=== PATIENT | female | born 1965 | race Hispanic/Latino ===

== ENCOUNTER 2021-11-15 02:39 | Emergency (ER) | payer OTHER ==
[2021-11-15 03:23] LABS: Urine Blood 3+ (Negative); Urine Glucose Negative (Negative); Urine Protein Trace (Negative); Urine Specific Gravity >=1.030 (1.005-1.030)
[2021-11-15] MEDS ORDERED: FENTANYL CITR 100 MCG/2 ML ONE (03:28)
[2021-11-15] MEDS ORDERED: ONDANSETRON 4 MG/2 ML VIAL ONE (03:29)
[2021-11-15] MEDS ORDERED: NA CHLORIDE 0.9% 50 ML ONE (03:29)
[2021-11-15] MEDS ORDERED: CEFTRIAXONE 1000 MG/VIAL ONE (03:29)
[2021-11-15] MEDS ORDERED: KETOROLAC 30 MG/ML INJ ONE (03:29)
--- NOTE | 2021-11-15 03:38 | EDPHYS ---
Physician Documentation [facility] Name: Chantell Renae Age: 56 yrs Sex: Female : 1965 Arrival Date: 11/15/2021 Time: 02:42 Bed 7 Private MD: Emmanuelle Martinez K ED Physician Subhash Medrano HPI: 11/15 03:30 This 56 yrs old Female presents to ER via Ambulatory with complaints of Hip kulwant Pain, Flank Pain. 03:30 The patient or guardian reports pain. that occurred at home, sustained from unknown kulwant reason. The complaints affect the back and abdomen. 03:31 The patient presents with abdominal pain in the left lower quadrant. Onset: The kulwant symptoms/episode began/occurred just prior to arrival. The patient complains of pain in the left low back and left mid back. The pain does not radiate. Onset: The symptoms/episode began/occurred last night. Modifying factors: The symptoms are alleviated by nothing. the symptoms are aggravated by nothing. Associated signs and symptoms: Pertinent positives: nausea. The symptoms radiate to the left flank. Associated signs and symptoms: Pertinent positives: nausea. The symptoms are described as crampy, sharp. Modifying factors: The symptoms are alleviated by nothing, the symptoms are aggravated by nothing. Historical: - Allergies: 02:49 Morphine; lg3 - Home Meds: 02:49 losartan-hydrochlorothiazide 50-12.5 mg oral tab 1 tab once daily [Active]; lg3 - PMHx: 02:50 Hypertensive disorder; lg3 - PSHx: 02:50 section; laminectomy; lg3 - Immunization history:: Adult Immunizations up to date, Client reports receiving the Alberto \T\ Alberto single-dose vaccine. Note moderna booster . - Social history:: Smoking status: Patient denies any tobacco usage or history of. - Family history:: not pertinent. ROS: 03:31 Constitutional: Negative for fever, chills, and weight loss, Eyes: Negative for injury, kulwant pain, redness, and discharge, ENT: Negative for injury, pain, and discharge, Neck: Negative for injury, pain, and swelling, Cardiovascular: Negative for chest pain, palpitations, and edema, Respiratory: Negative for shortness of breath, cough, wheezing, and pleuritic chest pain, Back: Negative for injury and pain, : Negative for injury, bleeding, discharge, and swelling, MS/Extremity: Negative for injury and deformity, Skin: Negative for injury, rash, and discoloration, Neuro: Negative for headache, weakness, numbness, tingling, and seizure, Psych: Negative for depression, anxiety, suicide ideation, homicidal ideation, and hallucinations, Allergy/Immunology: Negative for hives, rash, and allergies, Endocrine: Negative for neck swelling, polydipsia, polyuria, polyphagia, and marked weight changes, Hematologic/Lymphatic: Negative for swollen nodes, abnormal bleeding, and unusual bruising. 03:31 Abdomen/GI: Positive for abdominal pain, nausea, of the posterior aspect of left lateral abdomen, anterior aspect of left lateral abdomen and left lower quadrant. Exam: 03:31 Constitutional: This is a well developed, well nourished patient who is awake, alert, kulwant and in no acute distress. Head/Face: Normocephalic, atraumatic. Eyes: Pupils equal round and reactive to light, extra-ocular motions intact. Lids and lashes normal. Conjunctiva and sclera are non-icteric and not injected. Cornea within normal limits. Periorbital areas with no swelling, redness, or edema. ENT: Nares patent. No nasal discharge, no septal abnormalities noted. Tympanic membranes are normal and external auditory canals are clear. Oropharynx with no redness, swelling, or masses, exudates, or evidence of obstruction, uvula midline. Mucous membranes moist. Neck: Trachea midline, no thyromegaly or masses palpated, and no cervical lymphadenopathy. Supple, full range of motion without nuchal rigidity, or vertebral point tenderness. No Meningismus. Chest/axilla: Normal chest wall appearance and motion. Nontender with no deformity. No lesions are appreciated. Cardiovascular: Regular rate and rhythm with a normal S1 and S2. No gallops, murmurs, or rubs. Normal PMI, no JVD. No pulse deficits. Respiratory: Lungs have equal breath sounds bilaterally, clear to auscultation and percussion. No rales, rhonchi or wheezes noted. No increased work of breathing, no retractions or nasal flaring. Female : Normal external genitalia. Skin: Warm, dry with normal turgor. Normal color with no rashes, no lesions, and no evidence of cellulitis. MS/ Extremity: Pulses equal, no cyanosis. Neurovascular intact. Full, normal range of motion. Neuro: Awake and alert, GCS 15, oriented to person, place, time, and situation. Cranial nerves II-XII grossly intact. Motor strength 5/5 in all extremities. Sensory grossly intact. Cerebellar exam normal. Normal gait. Psych: Awake, alert, with orientation to person, place and time. Behavior, mood, and affect are within normal limits. 03:31 Abdomen/GI: Inspection: abdomen appears normal, Bowel sounds: normal, Palpation: mild abdominal tenderness, in the posterior aspect of left lateral abdomen and left lower quadrant. 03:31 Back: pain, that is mild, of the left mid back, ROM is normal, normal spinal alignment noted, CVA tenderness, is absent, vertebral tenderness, is not appreciated, muscle spasm, is not present. Vital Signs: 02:46 BP 162 / 87; Pulse 87; Resp 19 S; Temp 98.4(O); Pulse Ox 100% on R/A; Weight 57.61 kg lg3 (R); Height 5 ft. (152.40 cm) (R); Pain 6/10; 05:02 BP 142 / 75; Pulse 83; Resp 18; Pulse Ox 100% ; sm5 02:46 Body Mass Index 24.80 (57.61 kg, 152.40 cm) lg3 MDM: 02:57 Patient medically screened. [facility] 03:35 Differential diagnosis: nephrolithiasis, pyelonephritis, UTI, diverticulitis, kulwant pancreatitis, diverticulitis, Irritable bowel syndrome, non-specific abd pain, Pyelonephritis, Ureterolithiasis, urinary tract infection. Data reviewed: vital signs, nurses notes, lab test result(s), radiologic studies, CT scan. Data interpreted: monitoring tech: not applicable for this patient encounter. rate is 87 beats/min, rhythm is regular, Pulse oximetry: on room air is 100 %. Counseling: I had a detailed discussion with the patient and/or guardian regarding: the historical points, exam findings, and any diagnostic results supporting the discharge/admit diagnosis, lab results, radiology results, the need for outpatient follow up, for definitive care, a family practitioner. 11/15 03:13 Order name: Basic Metabolic Panel [facility] 11/15 03:13 Order name: CBC with Diff; Complete Time: 04:49 [facility] 11/15 03:13 Order name: Hepatic Function; Complete Time: 04:49 kulwant 11/15 03:13 Order name: Lipase; Complete Time: 04:49 [facility] 11/15 03:13 Order name: Urine Culture [facility] 11/15 03:14 Order name: Basic Metabolic Panel; Complete Time: 04:49 [facility] 11/15 03:13 Order name: IV Saline Lock; Complete Time: 03:15 kulwant 11/15 03:13 Order name: CT Stone Protocol [facility] 11/15 03:23 Order name: Urine Dipstick-Ancillary; Complete Time: 04:49 [facility] 11/15 03:13 Order name: Labs collected and sent; Complete Time: 03:44 kulwant 11/15 03:13 Order name: Urine Dipstick-Ancillary (obtain specimen); Complete Time: 03:44 [facility] Administered Medications: 03:41 Drug: Ketorolac 30 mg Route: IVP; Site: right hand; sm5 03:41 Drug: Zofran (Ondansetron) 4 mg Route: IVP; Site: right hand; sm5 03:42 Drug: fentaNYL (PF) 25 mcg Route: IVP; Site: right hand; sm5 03:43 Drug: Rocephin (cefTRIAXone) 1 grams Route: IV; Rate: per protocol; Site: right hand; sm5 05:02 Drug: Flomax (tamsulosin) 0.4 mg Route: PO; sm5 Disposition Summary: 11/15/21 04:49 Discharge Ordered Location: Home(11/15/21 04:49) kulwant Problem: new(11/15/21 04:49) kulwant Symptoms: have improved(11/15/21 04:49) kulwant Condition: Stable(11/15/21 04:49) kulwant Diagnosis - Hydronephrosis with renal and ureteral calculous obstruction(11/15/21 04:49) kulwant Followup: kulwant - With: - When: 2 - 3 days - Reason: Recheck today's complaints, Continuance of care, Re-evaluation by your physician Discharge Instructions: - Discharge Summary Sheet kulwant - Kidney Stones kulwant - Kidney Stones, [id number] kulwant - Hydronephrosis kulwant - Urinary Tract Infection, Adult kulwant - Urinary Tract Infection, Adult, [id number] kulwant - Dietary Guidelines to Help Prevent Kidney Stones kulwant Forms: - Medication Reconciliation Form kulwant - Thank You Letter kulwant - Antibiotic Education [facility] - Prescription Opioid Use [facility] Prescriptions: - Flomax 0.4 mg Oral capsule - take 1 capsule by ORAL route once daily 1/2 hour following the same meal each [facility] day; 20 capsule; Refills: 0, Product Selection Permitted - Cipro 250 mg Oral Tablet - take 1 tablet by ORAL route every 12 hours; 14 tablet; Refills: 0, Product [facility] Selection Permitted - Zofran 4 mg Oral Tablet - take 1 tablet by ORAL route every 12 hours As needed; 20 tablet; Refills: 0, [facility] Product Selection Permitted - Tylenol-Codeine #3 300 mg-30 mg Oral - take 2 tablet by ORAL route every 6 hours; 15 tablet; Refills: 0, Product [facility] Selection Permitted Signatures: Dispatcher [employer] EDSubhash Persaud MD MD cha Gibson, Lacie, RN RN lg3 Julienne Naik, RN RN sm5 Corrections: (The following items were deleted from the chart) 03:42 03:37 Home [facility] 03:42 03:37 new [facility] 03:42 03:37 have improved [facility] 03:42 03:37 Stable [facility] 03:42 03:37 Hydronephrosis with renal and ureteral calculous obstruction [facility]
--- NOTE | 2021-11-15 03:38 | ER ---
Nurse's Notes [facility] Name: Chantell Renae Age: 56 yrs Sex: Female : 1965 Arrival Date: 11/15/2021 Time: 02:42 Bed 7 Private MD: Emmanuelle Martinez K Diagnosis: Hydronephrosis with renal and ureteral calculous obstruction Presentation: 11/15 02:46 Chief complaint: Patient states: pain in the lower left abdomen and back. Coronavirus lg3 screen: Client denies travel out of the [place] in the last 14 days. At this time, the client does not indicate any symptoms associated with coronavirus-19. Ebola Screen: No symptoms or risks identified at this time. Initial Sepsis Screen: Does the patient meet any 2 criteria? No. Patient's initial sepsis screen is negative. Does the patient have a suspected source of infection? No. Patient's initial sepsis screen is negative. Risk Assessment: Do you want to hurt yourself or someone else? Patient reports no desire to harm self or others. Onset of symptoms was November 15, 2021 at 02:00. 02:46 Method Of Arrival: Ambulatory lg3 02:46 Acuity: ELADIO 3 lg3 Triage Assessment: 02:50 General: Appears in no apparent distress. uncomfortable, Behavior is calm, cooperative. lg3 Pain: Complains of pain in left lower quadrant Pain radiates to left lower back Pain currently is 6 out of 10 on a pain scale. at worst was 10 out of 10 on a pain scale. Neuro: Level of Consciousness is awake, alert, obeys commands, Oriented to person, place, time, situation. Respiratory: Airway is patent Trachea midline Respiratory effort is even, unlabored, Respiratory pattern is regular, symmetrical. GI: Abdomen is flat, non-distended. : Denies burning with urination, urinary frequency. Historical: - Allergies: 02:49 Morphine; lg3 - Home Meds: 02:49 losartan-hydrochlorothiazide 50-12.5 mg oral tab 1 tab once daily [Active]; lg3 - PMHx: 02:50 Hypertensive disorder; lg3 - PSHx: 02:50 section; laminectomy; lg3 - Immunization history:: Adult Immunizations up to date, Client reports receiving the Alberto \T\ Alberto single-dose vaccine. Note moderna booster . - Social history:: Smoking status: Patient denies any tobacco usage or history of. - Family history:: not pertinent. Screenin:54 Abuse screen: Denies threats or abuse. Nutritional screening: No deficits noted. lg3 Tuberculosis screening: No symptoms or risk factors identified. Fall Risk None identified. Assessment: 04:18 General: Appears in no apparent distress. Behavior is calm, cooperative, appropriate sm5 for age. Pain: Complains of pain in left flank pain. Neuro: No deficits noted. Level of Consciousness is awake, alert, Oriented to person, place, time, situation. : Reports pain in left flank(s), Denies burning with urination, inability to void. Vital Signs: 02:46 BP 162 / 87; Pulse 87; Resp 19 S; Temp 98.4(O); Pulse Ox 100% on R/A; Weight 57.61 kg lg3 (R); Height 5 ft. (152.40 cm) (R); Pain 6/10; 05:02 BP 142 / 75; Pulse 83; Resp 18; Pulse Ox 100% ; sm5 02:46 Body Mass Index 24.80 (57.61 kg, 152.40 cm) lg3 ED Course: 02:42 Patient arrived in ED. es 02:42 Emmanuelle Martinez MD is Private Physician. es 02:49 Triage completed. lg3 02:50 Arm band placed on left wrist. lg3 02:57 Subhash Medrano MD is Attending Physician. kulwant 03:14 Julienne Naik, JULISSA is Primary Nurse. sm5 03:15 Patient has correct armband on for positive identification. Bed in low position. Call sm5 light in reach. Side rails up X2. 03:15 Inserted saline lock: 20 gauge in right hand, using aseptic technique. Blood collected. sm5 03:37 Emmanuelle Martinez MD is Referral Physician. kulwant 03:41 CT Stone Protocol In Process Unspecified. EDMS 03:44 Basic Metabolic Panel Sent. sm5 04:49 Emmanuelle Martinez MD is Referral Physician. kulwant 05:03 No provider procedures requiring assistance completed. IV discontinued, intact, sm5 bleeding controlled, No redness/swelling at site. Pressure dressing applied. Administered Medications: 03:41 Drug: Ketorolac 30 mg Route: IVP; Site: right hand; sm5 03:41 Drug: Zofran (Ondansetron) 4 mg Route: IVP; Site: right hand; 5 03:42 Drug: fentaNYL (PF) 25 mcg Route: IVP; Site: right hand; 5 03:43 Drug: Rocephin (cefTRIAXone) 1 grams Route: IV; Rate: per protocol; Site: right hand; 5 05:02 Drug: Flomax (tamsulosin) 0.4 mg Route: PO; 5 Outcome: 03:37 Discharge ordered by . kulwant 04:49 Discharge ordered by . kulwant 05:03 Discharged to home ambulatory, with family. [facility] 05:03 Condition: good 05:03 Discharge instructions given to patient, family, Instructed on discharge instructions, follow up and referral plans. medication usage, Demonstrated understanding of instructions, follow-up care, medications, Prescriptions given X 4. 05:03 Patient left the ED. 5 Signatures: Dispatcher [employer] Subhash Polo MD MD cha Salyer, Edna es Gibson, Lacie, RN RN lg3 Julienne Naik RN RN sm5
[2021-11-15 03:45] LABS: Absolute Lymphocytes (CBC) 1.4 K/uL (0.7-4.9); Hematocrit 44.1 % (36.0-45.0); Lymphocytes % 21.9 % (15.3-44.8); MPV 8.5 fL (7.6-11.3); RBC Red Blood Cell Count 4.84 M/uL (3.86-4.86)
[2021-11-15 03:52] LABS: ALT/SGPT 42 U/L (12-78); AST/SGOT 17 U/L (15-37); Albumin 3.6 g/dL (3.4-5.0); Alkaline Phosphatase 81 U/L (45-117); BUN Blood Urea Nitrogen 18 mg/dL (7-18); Bicarbonate 25 mmol/L (21-32); Bilirubin Direct < 0.1 mg/dL (0-0.2); Bilirubin Total 0.2 mg/dL (0.2-1.0); Glucose Level 151 mg/dL (74-106); Lipase 152 U/L (73-393); Potassium 3.9 mmol/L (3.5-5.1); Protein, Total 7.3 g/dL (6.4-8.2); Sodium Level 141 mmol/L (136-145)
[2021-11-15] MEDS ORDERED: TAMSULOSIN 0.4 MG SR CAP ONE (04:54)
[2021-11-15 05:10] VITALS: TEMP 98.4; O2SAT 100
[2021-11-15 05:12] VITALS: BP 142/75
--- NOTE | 2021-11-15 10:50 | RAD REPORT ---
EXAM DESCRIPTION: CT - Stone Protocol - 11/15/2021 6:42 am CLINICAL HISTORY: 56 years, Female, Abd pain;Flank pain COMPARISON: None. TECHNIQUE: Multiple transaxial tomograms of the abdomen and pelvis were performed from the lung base s to the symphysis pubis 3 mm slice thickness at 3 mm interval reconstruction, without administration of IV and oral contrast. Multiplanar reformats in the sagittal and coronal plane were generated and reviewed. This exam was performed according to our departmental dose-optimization protocol, which includes auto mated exposure control, adjustment of the mA and/or kV according to patient size and/or use of iterat reina reconstruction technique. FINDINGS: The lack of IV and oral contrast limits evaluation of solid organs, subtle lesions cannot be excluded. The lung bases demonstrate to be clear. Grossly the unopacified liver, gallbladder, pancreas, spleen and adrenal glands demonstrate to be wit hin normal limits, no significant focal lesions were identified. There is mild left hydronephrosis and proximal left hydroureter extending up to level of the inferior aspect of the intervertebral disc level left side of L3/L4 where there is a tiny speckle of calculus measuring 1.8 x 0.9 mm on axial image 68 and coronal image 48. There is a residual calculus within t he midpole right kidney measuring approximately 2.7 mm on image 54. The right kidney demonstrate to be unremarkable. There is no evidence for right hydronephrosis and/or right hydroureter. Grossly the unopacified stomach, small bowel and large bowel demonstrate to be within normal limits. There is no evidence for bowel dilatation/or free air. There is mild fat, stasis. There is diverticul osis within the left site colon/sigmoid colon. The urinary bladder demonstrate to be within normal limits. The uterus demonstrate to the presence of a small calcification within the fundus corresponding to degenerated fibroid. There are no adnexal m asses. The aorta demonstrate very minimal atheromatous plaque formation. There is no retroperitonea l lymphadenopathy. There is no evidence for ascites. The rest of the soft tissue demonstrate to be grossly unremarkable. IMPRESSION: Mild left hydronephrosis and proximal left hydroureter extending up to level of the infe rior aspect of the intervertebral disc level left side of L3/L4 where there is a tiny speckle of calc ulus measuring 1.8 x 0.9 mm. Residual calculus within the midpole right kidney measuring approximately 2.7 mm. Diverticulosis without evidence for diverticulitis. Electronically signed by: Louis Obrien MD 11/15/2021 3:53 AM KISS MACHINE OPERATOR Due to temporary technical issues with the PACS/Fluency reporting system, reports are being signed by the in house radiologist without review as a courtesy to ensure prompt reporting. The interpreting r adiologist is fully responsible for the content of the report.
== END 2021-11-15 05:03 | disposition home or self-care (01) ==
LOC: ER 02:39
DX: N13.2 Hydronephrosis with renal and ureteral calculous obstruction (principal); I10 Essential (primary) hypertension; Z88.5 Allergy status to narcotic agent
CPT/HCPCS: 87088; 85025; 87086; 80048; 36415; 80076; 81003; 83690; 76377; 74176; 96375; 96374; 99284; J3010; J2405